=== PATIENT | female | born 1960 ===

== ENCOUNTER 2018-09-13 10:29 | Outpatient (REF) | payer MEDICAID, SELFPAY ==
[2018-09-13 22:01] LABS: Abs Immature Grans 0.01 k/cumm (0.0-0.09); Absolute Basophil Count 0.03 k/cumm (0.0-0.2); Absolute Eosinophil Count 0.14 k/cumm (0.0-0.7); Absolute Monocyte Count 0.41 k/cumm (0.11-0.7); Basophils % 0.6; Eosinophils % 2.6; HCT 40.4 % (36.0-46.0); HGB 13.4 g/dL (12.0-15.5); Immature Grans % 0.2; Lymphocytes % 22.3; Mean Corp. HGB Concentration 33.2 g/dL (32.0-36.0); Mean Corpuscular Hemoglobin 30.9 pg (27.0-33.0); Mean Corpuscular Volume 93.1 fL (80-95); Mean Platelet Volume 10.4 fL (8.0-11.0); Monocytes % 7.6; Neutrophils % 66.7; Platelet Count 249 x1000/uL (130-400); RBC 4.34 m/cumm (4.00-5.20); RBC Distribution Width 13.5 % (11.7-14.6); White Blood Cell Count 5.39 k/cumm (4.4-10.8)
[2018-09-13 22:08] LABS: ALT 27 U/L (12-78); AST 21 U/L (15-37); Albumin 3.9 g/dL (3.4-5.0); Alkaline Phosphatase 89 U/L (46-116); Anion Gap 12.5 mmol/L (3-11); BUN 20 mg/dL (7-18); Bilirubin, Total 0.4 mg/dL (0.2-1.0); C-Reactive Protein 0.12 mg/dL (0.0-0.3); CO2 24.5 mmol/L (21.0-32.0); CREATININE 0.64 mg/dL (0.55-1.02); Chloride 106 mmol/L (98-107); Glucose 96 mg/dL (70-100); Sodium 143 mmol/L (136-145); Total Protein 6.7 g/dL (6.4-8.2)
[2018-09-13 23:02] LABS: ESR 10 MM/HR (0-30)
[2018-09-15 09:30] LABS: Cyclic Citrullinated Peptide <2.5 U/mL (<5.0)
[2018-09-15 10:43] LABS: Lyme Ab w Rflx to Lyme Confirm Negative
[2018-09-15 11:49] LABS: Rheumatoid Factor 8 IU/mL (<12.5)
[2018-09-15 14:39] LABS: ANA Interpretation Positive (NEGAT); ANA Titer Pattern 1:160 Speckled
[2018-09-15 23:52] LABS: Anaplasma phagocytophilum Negative (Negative); B. miyamotoi PCR Negative (Negative); Babesia divergens/MO-1 Negative (Negative); Babesia duncani Negative (Negative); Babesia microti Negative (Negative); Ehrlichia chaffeensis Negative (Negative); Ehrlichia ewingii/canis Negative (Negative); Ehrlichia muris eauclairensis Negative (Negative)
== END 2018-09-13 10:49 ==
LOC: NCHCN 10:29
PROVIDERS: PCP Nurse Practitioner Family; Visit Provider Nurse Practitioner Family
DX: R20.2 Paresthesia of skin (principal); M13.0 Polyarthritis, unspecified
CPT/HCPCS: 80053; 85652; 86200; 87798; 85025; 86038; 86140; 86431; 86618

== ENCOUNTER 2019-04-12 21:41 | Outpatient (REF) | payer MEDICAID, SELFPAY | END 2019-04-12 22:01 | LOC: NCHCN 21:41 | PROVIDERS: PCP Nurse Practitioner Family; Visit Provider Registered Nurse | DX: Z11.3 Encounter for screening for infections with a predominantly sexual mode of transmission (principal); Z53.09 Procedure and treatment not carried out because of other contraindication | CPT/HCPCS: 87491; 87591 ==

== ENCOUNTER 2021-08-14 15:29 | Outpatient (REF) | payer MEDICAID, SELFPAY ==
[2021-08-14 21:29] LABS: Hemoglobin A1C 5.4 % (<5.7)
[2021-08-14 21:38] LABS: Anion Gap 9.6 mmol/L (3-11); BUN 17 mg/dL (7-18); CO2 25.4 mmol/L (21.0-32.0); CREATININE 0.7 mg/dL (0.55-1.02); Calcium 8.5 mg/dL (8.5-10.1); Calculated LDL 55 mg/dL (<100); Chloride 109 mmol/L (98-107); Cholesterol 132 mg/dL (<200); Glucose 83 mg/dL (74-106); HDL Cholesterol 70 mg/dL (40-60); Potassium 3.8 mmol/L (3.5-5.1); Sodium 144 mmol/L (136-145); Triglyceride 37 mg/dL (<150)
[2021-08-16 09:40] LABS: Hepatitis C Ab w Rflx HCV PCR Negative (Negative)
== END 2021-08-14 15:30 | disposition home or self-care (01) ==
LOC: NCHCN 15:29
PROVIDERS: PCP Nurse Practitioner Family; Visit Provider Registered Nurse
DX: I48.91 Unspecified atrial fibrillation (principal); Z13.1 Encounter for screening for diabetes mellitus; Z11.59 Encounter for screening for other viral diseases; Z13.220 Encounter for screening for lipoid disorders; E66.01 Morbid (severe) obesity due to excess calories; Z68.41 Body mass index [BMI] 40.0-44.9, adult
CPT/HCPCS: 80048; 80061; 86803; 83036

== ENCOUNTER 2022-08-13 15:56 | Outpatient (REF) | payer MEDICAID, SELFPAY ==
--- OUTSIDE RECORDS SUMMARY | 2022-08-13 16:30 | XMS_ITS | CCD ---
Author Name Unknown Address [address] [place] [address] [id number] Organization Unknown Address [address], [place] [id number] Care Team Providers Care Deportation Examiner Name Role Phone SOSA NEAL, LEILA Gonzalez Attending Physician [phone] Vital Signs Unknown or Not Available. Allergies Allergy Code Allergy Type Reaction Status CODEINE 2670 Drug allergy NAUSEA/VOMITING Active ADHESIVE 0 Allergy to substance RASH Acti ve Procedures Unknown or Not Available. History of Immunizations Unknown or Not Available. Problems Unknown or Not Available. Results Unknown or Not Available. Active Medications Unknown or Not Available. Medications Administered During Visit Unknown or Not Available. Encounters Encounter Diagnosis Diagnosis Code Start Date Unspecified atrial fibrillation I4891 11/05/2020 Social History Smoking Status Code Start Date End Date Former smoker [id number] Patient Decision Aids Unknown or Not Available. Discharge Instructions You were admitted to [facility] on 11/05/2020 10:51 with a principal diagnosis of Unspecified atrial fibrillation You were discharged from [facility] on 11/05/2020 10:51 Should you have any questions prior to discharge, please contact a member of your healthcare team. If you have left the hospital and have any questions, please contact your primary care physician. Chief Complaint and Reason For Visit Unknown or Not Available. Function Status Unknown or Not Available. Plan of Care Unknown or Not Available. Referral/Transition of Care Unknown or Not Available.
--- OUTSIDE RECORDS SUMMARY | 2022-08-13 16:30 | XMS_ITS | CCD ---
Author Name Unknown Address [address] [place] [address] [id number] Organization Unknown Address [address] [place], [place] [id number] Care Team Providers Care Manager Park Name Role Phone RANDY DIAS Attending Physician [phone] RANDY DIAS Rounding (Secondary) Physician [phone] Vital Signs Unknown or Not Available. Allergies [...] Encounters Encounter Diagnosis Diagnosis Code Start Date Carpal tunnel syndrome, bilateral upper limbs G5 603 09/18/2021 Social History Smoking Status Code Start Date End Date Former smoker [id number] 01/13/1995 Patient Decision Aids Unknown or Not Available. Discharge Instructions You were admitted to [facility] on 09/18/2021 13:59 with a principal diagnosis of Carpal tunnel syndrome, bilateral upper limbs You were discharged from [facility] on 09/18/2021 00:00 Should you have any questions prior to [...]
--- OUTSIDE RECORDS SUMMARY | 2022-08-13 16:30 | XMS_ITS | CCD ---
Author Name Unknown Address [address] [place] [address] [phone] Organization Unknown Address [address] [place], [place] [id number] Care Team Providers Care Publication Manager Name Role Phone CHRISTIE SINGER Attending Physician [phone] CHRISTIE SINGER Rounding (Secondary) Physician [phone] Vital Signs Unknown or Not Available. Allergies [...] Encounters Encounter Diagnosis Diagnosis Code Start Date Flat foot [pes planus] (acquired), right foot M2 141 09/17/2021 Social History Smoking Status Code Start Date End Date Former smoker [id number] 01/13/1995 Patient Decision Aids Unknown or Not Available. Discharge Instructions You were admitted to [facility] on 09/17/2021 12:02 with a principal diagnosis of Flat foot of right foot You were discharged from [facility] on 09/17/2021 00:00 Should you have any questions prior [...]
--- OUTSIDE RECORDS SUMMARY | 2022-08-13 16:30 | XMS_ITS | CCD ---
Author Name Unknown Address [address] [place] [address] [phone] Organization Unknown Address [address] [place], [place] [phone] Care Team Providers Care Driver Education Road Instructor Name Role Phone LEILA SWAN Attending Physician [phone] LEILA SWAN Rounding (Secondary) Physician [phone] Vital Signs Unknown or Not Available. Allergies [...] Code Start Date Unspecified atrial fibrillation I4891 10/24/2021 Social History Smoking Status Code Start Date End Date Former smoker [id number] 01/13/1995 Patient Decision Aids Unknown or Not Available. Discharge Instructions You were admitted to [facility] on 10/24/2021 14:59 with a principal diagnosis of Unspecified atrial fibrillation You were discharged from [facility] on 10/24/2021 00:00 Should you have any questions prior [...]
[2022-08-13 17:47] LABS: ALT 37 U/L (14-59); AST 26 U/L (15-37); Alkaline Phosphatase 88 U/L (46-116); Anion Gap 9.8 mmol/L (3-11); BUN 14 mg/dL (7-18); Bilirubin, Total 0.4 mg/dL (0.2-1.0); CO2 25.2 mmol/L (21.0-32.0); CREATININE 0.7 mg/dL (0.55-1.02); Calcium 9.2 mg/dL (8.5-10.1); Calculated LDL 57 mg/dL (<100); Chloride 106 mmol/L (98-107); Cholesterol 144 mg/dL (<200); Estimated GFR 98.95 (mL/min/1.73m2); Glucose 102 mg/dL (74-106); HDL Cholesterol 79 mg/dL (40-60); Potassium 4.1 mmol/L (3.5-5.1); Sodium 141 mmol/L (136-145); Total Protein 7.3 g/dL (6.4-8.2); Triglyceride 41 mg/dL (<150)
== END 2022-08-13 15:57 | disposition home or self-care (01) ==
LOC: NCHCN 15:56
PROVIDERS: PCP Nurse Practitioner Family; Visit Provider Registered Nurse
DX: I48.91 Unspecified atrial fibrillation (principal); E66.8 Other obesity; Z13.220 Encounter for screening for lipoid disorders; Z00.00 Encounter for general adult medical examination without abnormal findings
CPT/HCPCS: 80053; 80061

== ENCOUNTER 2023-11-05 18:44 | Outpatient (REF) | payer MEDICAID, SELFPAY ==
[2023-11-05 14:47] LABS: HCT 39.8 % (36.0-46.0); HGB 13.4 g/dL (11.2-15.7); MCH 31.5 pg (27.0-33.0); MCHC 33.7 % (32.0-36.0); MCV 93 fL (80-95); MPV 9.9 fL (8.0-11.0); Platelet Count 227 10^3/uL (130-400); RBC 4.26 10^6/uL (3.93-5.22); RDW 12.7 % (11.7-14.6); RDW-SD 43.7 fL; WBC 6.14 10^3/uL (4.4-10.8)
[2023-11-05 15:16] LABS: ALT 45 U/L (14-59); AST 23 U/L (15-37); Albumin 3.8 g/dL (3.4-5.0); Alkaline Phosphatase 81 U/L (46-116); Anion Gap 10.7 mmol/L (3-11); BUN 20 mg/dL (7-18); Bilirubin, Total 0.41 mg/dL (0.2-1.0); CO2 24.3 mmol/L (21.0-32.0); CREATININE 0.6 mg/dL (0.55-1.02); Calculated LDL 55 mg/dL (<100); Chloride 107 mmol/L (98-107); Cholesterol 138 mg/dL (<200); Estimated GFR 102.06 (mL/min/1.73m2); Glucose 104 mg/dL (74-106); HDL Cholesterol 76 mg/dL (40-60); Sodium 142 mmol/L (136-145); TSH (W/Ref FT4) 1.15 uIU/mL (0.36-3.74); Total Protein 6.8 g/dL (6.4-8.2); Triglyceride 37 mg/dL (<150)
== END 2023-11-05 18:45 | disposition home or self-care (01) ==
LOC: NCHCN 18:44
PROVIDERS: PCP Nurse Practitioner Family; Visit Provider Family Medicine
DX: I48.91 Unspecified atrial fibrillation (principal); E66.8 Other obesity; Z13.0 Encounter for screening for diseases of the blood and blood-forming organs and certain disorders involving the immune mechanism; Z13.228 Encounter for screening for other metabolic disorders
CPT/HCPCS: 80053; 80061; 85027; 84443

== ENCOUNTER 2024-09-21 08:35 | Outpatient (REF) | payer MEDICAID, SELFPAY ==
--- NOTE | 2024-09-21 07:45 | PAPFT_PTH ---
PATIENT: Gricelda Donnelly LOC: [facility]#:[id number] AGE/SX: 64/F ROOM: RE09/21/[address]: CHELSI: 1960 BED: DIS: 09/21/2024 SPEC #: [id number] RECD: 09/21/24 17:31 STATUS: JAYLA REVeronica #: [id number] SHARON: 09/21/24 07:[address]: Argentina Fox DEPT: [facility] Cytology RECD BY: Shavon Kerns ENTERED: 09/21/24 17:32 SP TYPE: PAPFT OTHR DR: Onelia Lee Tissues: 1 - CX/ENDOCX FOR PAP SMEARS Procedures: PAP THIN PREP/[facility] Screening HPV DNA PROBE Comments: [id number] (HPV 16 & 18/45)
== END 2024-09-21 08:36 | disposition home or self-care (01) ==
LOC: NCHCN 08:35
PROVIDERS: PCP Nurse Practitioner Family; Visit Provider Family Medicine
DX: Z11.51 Encounter for screening for human papillomavirus (HPV) (principal); Z01.419 Encounter for gynecological examination (general) (routine) without abnormal findings
CPT/HCPCS: 88142; 87624